=== PATIENT | male | born 1970 | race Caucasian/White ===

== ENCOUNTER 2017-06-21 04:32 | Emergency (ER) | payer OTHER ==
[~2017-06-21] VITALS: Ht 177.8 cm; Wt 106.6 kg
[2017-06-21] MEDS ORDERED: ASPI-1471 PO (04:45)
[2017-06-21] MEDS ORDERED: TICA90TA PO (04:51)
[2017-06-21 04:53] LABS: PLATELET COUNT, AUTOMATED 322 K/uL (150-450)
--- NOTE | 2017-06-21 04:53 | ER Report ---
History and Physical Time Seen By MD: 04:42 Hx. of Stated Complaint: PATIENT HAD AN OR TWO WEEKS AGO, HE WAS AWOKE WITH HAVINESS, HE FEELS REALLY NAUSEATED AND WEAK AND STATES THAT IS HOW HE FELT WITH THE OR TWO WEEKS AGO. HPI/ROS CHIEF COMPLAINT: chest pressure, shortness of breath HISTORY OF PRESENT ILLNESS: This is a 46 year old male. He awoke this morning feeling restless and a feeling of pressure in his chest and jaw. This was very similar to the feeling he had two weeks ago when he had a heart attack while working in [place]. He was admitted to the hospital in [place], [place]. He had a heart cath and noted blockages and clots in his arteries of his heart. Treated with Brilinta and Heparin. No stents placed. He has been on Brilinta and a low dose aspirin since then. He feels the same as his prior heart attack. REVIEW OF SYSTEMS: Constitutional: No fever or chills. Eyes: No vision changes. ENT: No sore throat. No congestion. Cardiovascular: As above. Respiratory: No cough. Gastrointestinal: No abdominal pain. Genitourinary: No dysuria or trouble with urination. Musculoskeletal: No musculoskeletal pain. Skin: No rashes. Neurological: No numbness. Has some generalized weakness. Allergies: Coded Allergies: No Known Drug Allergies (Unverified , 06/21/17) Home Meds Reported Medications Ticagrelor (BRILINTA) 90 Mg Tablet, 90 MG PO BID 06/21/17 Aspirin (ASPIR 81) 81 Mg Tablet.dr, 81 MG PO QDAY, TAB 06/21/17 Past Medical/Surgical History Sleep apnea, headaches. Heart attack 2 weeks ago as noted above. Reviewed Nurses Notes: Yes Hx Substance Use Disorder: No Hx Alcohol Use: No Constitutional Vital Sign - Last 24 Hours 06/21/17 06/21/17 06/21/17 06/21/17 04:32 04:34 04:42 05:00 Temp 98.4 Pulse 86 Resp 15 B/P (MAP) 115/81 115/81 (92) 117/73 (88) Pulse Ox 99 O2 Flow Rate 2.0 06/21/17 06/21/17 06/21/17 06/21/17 05:02 05:07 05:22 05:37 Pulse 78 80 78 77 Resp 16 15 14 19 Pulse Ox 95 95 97 89 06/21/17 06/21/17 06/21/17 06/21/17 05:52 06:08 06:13 06:28 Pulse 75 71 ??? Resp 48 14 27 B/P (MAP) 111/83 (92) Pulse Ox 89 97 97 06/21/17 06/21/17 06:32 06:43 Pulse 74 Resp 29 B/P (MAP) 114/76 (89) Pulse Ox 97 Physical Exam General Appearance: The patient is alert. No acute distress. Eyes: Pupils are equal, round. No pallor, injection or icterus. ENT: Mucous membranes are moist. Normal oral mucosa. Posterior oropharynx is normal. Respiratory: Lungs are clear to auscultation. Cardiovascular: Regular rate and rhythm. No murmurs, gallops or rubs. Normal capillary refill. No edema. Gastrointestinal: Abdomen is soft and non tender. Nondistended. Normal active bowel sounds. Neurological: Alert and oriented x3. Skin: Warm and dry. DIFFERENTIAL DIAGNOSIS: After history and physical exam, differential diagnosis was considered for chest pain including but not limited to myocardial ischemia, pericarditis pulmonary embolus, chest wall pain, pleural inflammation and pulmonary infectious causes. Medical Decision Making Data Points Result Diagram: 06/21/179 06/21/179 Laboratory Hematology Test 06/21/17 04:19 Red Blood Count 5.96 M/uL (4.00-5.60) Mean Corpuscular Volume 88.4 fL (80.0-96.0) Mean Corpuscular Hemoglobin 30.2 pg (26.0-33.0) Mean Corpuscular Hemoglobin Concent 34.2 g/dL (32.0-36.0) Red Cell Distribution Width 14.4 % (11.5-14.5) Mean Platelet Volume 7.6 fL (7.2-11.1) Neutrophils (%) (Auto) 47.6 % (39.4-72.5) Lymphocytes (%) (Auto) 37.9 % (17.6-49.6) Monocytes (%) (Auto) 8.9 % (4.1-12.4) Eosinophils (%) (Auto) 3.5 % (0.4-6.7) Basophils (%) (Auto) 2.1 % (0.3-1.4) Nucleated RBC Relative Count (auto) 0.1 /100WBC Neutrophils # (Auto) 4.0 K/uL (2.0-7.4) Lymphocytes # (Auto) 3.2 K/uL (1.3-3.6) Monocytes # (Auto) 0.7 K/uL (0.3-1.0) Eosinophils # (Auto) 0.3 K/uL (0.0-0.5) Basophils # (Auto) 0.2 K/uL (0.0-0.1) Nucleated RBC Absolute Count (auto) 0.01 K/uL D-Dimer Quantitative (PE/DVT) 0.51 ug/ml (0-0.50) Sodium Level 138 mmol/L (137-145) Potassium Level 3.9 mmol/L (3.5-5.0) Chloride Level 101 mmol/L (98-107) Carbon Dioxide Level 23 mmol/L (22-30) Blood Urea Nitrogen 15 mg/dl (9-21) Creatinine 1.30 mg/dl (0.66-1.25) Glomerular Filtration Rate Calc 59.2 Random Glucose 93 mg/dl (75-110) Calcium Level 8.9 mg/dl (8.4-10.2) Total Bilirubin 0.7 mg/dl (0.2-1.3) Aspartate Amino Transf (AST/SGOT) 27 U/L (0-35) Alanine Aminotransferase (ALT/SGPT) 43 U/L (0-56) Alkaline Phosphatase 105 U/L (0-126) Troponin I 0.248 ng/ml C-Reactive Protein 0.7 mg/dl (<1.0) Total Protein 8.0 gm/dl (6.3-8.2) Albumin 4.4 g/dl (3.5-5.0) Chemistry Test 06/21/17 04:19 White Blood Count 8.4 k/uL (4.5-11.0) Red Blood Count 5.96 M/uL (4.00-5.60) Hemoglobin 18.0 g/dL (14.0-18.0) Hematocrit 52.7 % (42.0-52.0) Mean Corpuscular Volume 88.4 fL (80.0-96.0) Mean Corpuscular Hemoglobin 30.2 pg (26.0-33.0) Mean Corpuscular Hemoglobin Concent 34.2 g/dL (32.0-36.0) Red Cell Distribution Width 14.4 % (11.5-14.5) Platelet Count 322 K/uL (150-450) Mean Platelet Volume 7.6 fL (7.2-11.1) Neutrophils (%) (Auto) 47.6 % (39.4-72.5) Lymphocytes (%) (Auto) 37.9 % (17.6-49.6) Monocytes (%) (Auto) 8.9 % (4.1-12.4) Eosinophils (%) (Auto) 3.5 % (0.4-6.7) Basophils (%) (Auto) 2.1 % (0.3-1.4) Nucleated RBC Relative Count (auto) 0.1 /100WBC Neutrophils # (Auto) 4.0 K/uL (2.0-7.4) Lymphocytes # (Auto) 3.2 K/uL (1.3-3.6) Monocytes # (Auto) 0.7 K/uL (0.3-1.0) Eosinophils # (Auto) 0.3 K/uL (0.0-0.5) Basophils # (Auto) 0.2 K/uL (0.0-0.1) Nucleated RBC Absolute Count (auto) 0.01 K/uL D-Dimer Quantitative (PE/DVT) 0.51 ug/ml (0-0.50) Glomerular Filtration Rate Calc 59.2 Calcium Level 8.9 mg/dl (8.4-10.2) Total Bilirubin 0.7 mg/dl (0.2-1.3) Aspartate Amino Transf (AST/SGOT) 27 U/L (0-35) Alanine Aminotransferase (ALT/SGPT) 43 U/L (0-56) Alkaline Phosphatase 105 U/L (0-126) Troponin I 0.248 ng/ml C-Reactive Protein 0.7 mg/dl (<1.0) Total Protein 8.0 gm/dl (6.3-8.2) Albumin 4.4 g/dl (3.5-5.0) Coagulation Test 06/21/17 04:19 D-Dimer Quantitative (PE/DVT) 0.51 ug/ml EKG/Imaging EKG Interpretation 12 lead EKG: At 0429 hours Rhythm: normal sinus rhythm, rate 83 [place]: normal QRS: normal ST segments: Q waves in the inferior leads with some T-wave inversion in biphasic nature. The rest the T waves and ST segments look normal out elevation or depression. 12 lead EKG: At 0552 hours Rhythm: normal sinus rhythm, rate 70 Unchanged Imaging CHEST PA AND LATERAL 06/21/2017 4:58 AM. INDICATION: Chest pain. COMPARISON: None. FINDINGS: Lungs are well-expanded. Mild bronchial wall thickening. No focal consolidation. No pneumothorax or pleural effusion. Pulmonary vasculature is unremarkable. Heart size is normal. IMPRESSION: Mild airways disease. Report Dictated By: Neymar Wiseman MD at 06/21/2017 5:08 AM ED Course/Re-evaluation Clinical Indication for ER IV: IV Access ED Course The patient had aspirin and nitro from EMS with some improvement of symptoms. He has continued pressure in jaw and chest and some shortness of breath. Labs obtained with IV start. Initial EKG with inferior lead changes as noted, but no ST elevation noted. He has mild nausea which was treated with a dose of Zofran 4mg IV. Labs are returning and show a critical elevation of his troponin of 0.248. Talked with the patient regarding the lab results and we will contact [facility] cardiology for transfer for further evaluation and treatment. I discussed the case with Dr. Freeman, cardiology, and Dr. Davis, hospitalist. They have accepted the patient. We are going to transfer by [facility] ground ambulance. We are in the process of trying to contact the hospital in [place], [place] for more information regarding the heart catheterization and treatments received at that time. We are starting a Heparin bolus and drip at this time as well. Decision to Disposition Date: Jun 21, 2017 Decision to Disposition Time: 05:47 Depart Departure Latest Vital Signs Vital Signs Date Time Temp Pulse Resp B/P (MAP) Pulse Ox O2 Delivery O2 Flow Rate FiO2 06/21/17 06:43 74 29 97 06/21/17 06:32 114/76 (89) 06/21/17 04:42 2.0 06/21/17 04:32 98.4 Impression: Primary Impression: Non-ST elevated myocardial infarction Condition: Condition Unchanged [facility] Jun 21, 2017 04:53
[2017-06-21] MEDS ORDERED: ONDANSETRON 4 MG/2 ML VIAL IVP ONE (05:05)
[2017-06-21] MEDS ORDERED: EMS NS 0.9%(*) 1000 ML BAG 1,000 ML IV ONE (05:05)
--- NOTE | 2017-06-21 05:13 | RADIOLOGY IMAGING REPORT ---
FACILITY: [facility] PATIENT NAME: Bimal Mccray : 1970 MR: [id number] V: [id number] EXAM DATE: ORDERING PHYSICIAN: AMARIS CAMPBELL TECHNOLOGIST: Location: [facility] Patient: Bimal Mccray : 1970 Visit/Account:[id number] Date of Sevice: 06/21/2017 CHEST PA AND LATERAL 06/21/2017 4:58 AM. INDICATION: Chest pain. COMPARISON: None. FINDINGS: Lungs are well-expanded. Mild bronchial wall thickening. No focal consolidation. No pneu mothorax or pleural effusion. Pulmonary vasculature is unremarkable. Heart size is normal. IMPRESSION: Mild airways disease. Report Dictated By: Neymar Wiseman MD at 06/21/2017 5:08 AM Report E-Signed By: Neymar Wiseman MD at 06/21/2017 5:09 AM [id number]
--- NOTE | 2017-06-21 05:16 | EKG ---
[place] [facility] [place]IENT NAME: PIPPA CAMPO : [id number] MR: [id number] V: [id number] EXAM DATE: ORDERING PHYSICIAN: AMARIS CAMPBELL TECHNOLOGIST: SHUBHAM Test Reason : CHEST PAIN Blood Pressure : / mmHG Vent. Rate : 083 BPM Atrial Rate : 083 BPM P-R Int : 180 ms QRS Dur : 098 ms QT Int : 400 ms P-R-T Axes : 043 -27 006 degrees QTc Int : 470 ms Normal sinus rhythm Inferior infarct , age undetermined Abnormal ECG No previous ECGs available Confirmed by LUIS HOLT ([id number]) on 06/21/2017 6:20:18 AM Referred By: Confirmed By:LUIS HOLT
[2017-06-21] MEDS ORDERED: HEPARIN* SOD/D5W 25000 U/500ML 500 ML IV ONE (05:45)
[2017-06-21] MEDS ORDERED: HEPARIN (PORC) 5000 UN/ML VIAL IVP ONE (05:45)
[2017-06-21 06:32] VITALS: BP 114/76
--- NOTE | 2017-06-21 06:44 | EKG ---
FACILITY: [facility] [place] PATIENT NAME: PIPPA CAMPO : [id number] MR: [id number] V: [id number] EXAM DATE: ORDERING PHYSICIAN: AMARIS CAMPBELL TECHNOLOGIST: SHUBHAM Test Reason : CHEST PAIN Blood Pressure : / mmHG Vent. Rate : 070 BPM Atrial Rate : 070 BPM P-R Int : 186 ms QRS Dur : 104 ms QT Int : 416 ms P-R-T Axes : 044 -16 004 degrees QTc Int : 449 ms Normal sinus rhythm Inferior infarct (cited on or before 21-JUN-2017) Abnormal ECG When compared with ECG of 21-JUN-2017 04:29, No significant change was found Confirmed by JAMEEL MONSIVAIS ([id number]) on 06/21/2017 3:33:27 PM Referred By: Confirmed By:JAMEEL MONSIVAIS
== END 2017-06-21 06:51 | disposition short-term general hospital (02) ==
LOC: ER 04:40
DX: I22.2 Subsequent non-ST elevation (NSTEMI) myocardial infarction (principal); I21.9 Acute myocardial infarction, unspecified
CPT/HCPCS: 71046; 84484; 85025; 85379; 86140; 93005; 96361; 96365; 96375; 99285; J1644; 82040; 82247; 82310; 82374; 82435; 82565; 82947; 84075; 84132; 84155; 84295; 84450; 84460; 84520

== ENCOUNTER → 2017-06-21 | Outpatient (CLI) | payer OTHER ==
[~2017-06-21] MED LIST: ASPI-1471 PO; TEST1.25 TOP; TICA90TA PO; WARF5TAB23 PO
== END ==
LOC: AMB 06:39
PROVIDERS: ATTEND Nurse Practitioner
DX: I21.4 Non-ST elevation (NSTEMI) myocardial infarction (principal); R79.89 Other specified abnormal findings of blood chemistry
CPT/HCPCS: A0425; A0426

== ENCOUNTER → 2017-06-21 | Outpatient (CLI) | payer OTHER | LOC: AMB 04:08 | PROVIDERS: ATTEND Nurse Practitioner | DX: R07.89 Other chest pain (principal); F41.9 Anxiety disorder, unspecified | CPT/HCPCS: A0425; A0427 ==

== ENCOUNTER 2017-07-01 16:10 | Emergency (ER) | payer OTHER ==
[~2017-07-01] VITALS: Ht 175.3 cm; Wt 108.9 kg
[~2017-07-01 16:10] MED LIST changes: -WARF5TAB23 PO
--- NOTE | 2017-07-01 16:20 | ER Report ---
History and Physical Time Seen By MD: 16:19 Hx. of Stated Complaint: pt presents with chest pain , sob, nausea and bilat jaw pain, intermittantly thru day. Pt had mi 2 weeks ago, had 2 card caths, and was told blood clots are causing his trouble (SEAN PERALTA MD) HPI/ROS CHIEF COMPLAINT: Chest pain HISTORY OF PRESENT ILLNESS: 46-year-old male referred from doctor's office for chest pain that started around 2 PM feels similar to prior SC per Dr. Fontenot he had troponin of 0.299 today at 1500. 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 He reports 2 prior MIs that required catheter and angiomoplasty was performed without stent placement, last intervention was about 2 weeks ago. He on Ticagrelor (Brilinta) 90 mg po BID and reports compliance. Also on baby ASA 81s. He took two of those [employer]. He is on topical testosterone. Per report his troponin was higher today than it was upon discharge recently from [facility] where the troponin tested at 0.21 and was trending downward at the time of discharge. No other concerns or complaints today. He is refusing morphine at this time. He is refusing Nitro at this time as it has not worked well in the past. REVIEW OF SYSTEMS: Constitutional: No fever, no chills. Eyes: No discharge. ENT: No sore throat. Cardiovascular: No edema, no palpitations. Respiratory: No cough, no shortness of breath. Gastrointestinal: No abdominal pain, no vomiting. Genitourinary: No hematuria. Musculoskeletal: No back pain. No leg swelling Skin: No rashes. Neurological: No headache. (SEAN PERALTA MD) Allergies: Coded Allergies: No Known Drug Allergies (Unverified , 07/01/17) Home Meds Reported Medications TESTOSTERONE 1.62% Topical Gel (ANDROGEL 1.62% Topical Gel) 1.25 Gm Gel.packet, 2 JEANNE TOP DAILY 07/01/17 Ticagrelor (BRILINTA) 90 Mg Tablet, 90 MG PO BID 06/21/17 Aspirin (ASPIR 81) 81 Mg Tablet.dr, 81 MG PO QDAY, TAB 06/21/17 Smoking Status: Never Smoker Hx Substance Use Disorder: No Hx Alcohol Use: No (SEAN PERALTA MD) Constitutional Vital Sign - Last 24 Hours 07/01/17 07/01/17 07/01/17 07/01/17 16:14 16:15 16:30 16:40 Temp 100.3 Pulse 89 81 Resp 22 B/P (MAP) 142/94 (110) 142/94 130/90 (103) Pulse Ox 97 96 O2 Delivery Room Air 07/01/17 07/01/17 07/01/17 07/01/17 16:45 17:00 18:45 19:00 Pulse 92 82 B/P (MAP) 122/79 (93) 132/90 (104) 137/77 (97) 131/85 (100) Pulse Ox 93 93 07/01/17 07/01/17 07/01/17 07/01/17 19:15 19:28 19:30 19:45 Pulse 84 86 89 94 B/P (MAP) 138/85 (102) 123/82 (96) 127/78 (94) 118/66 (83) Pulse Ox 95 94 92 94 (CHALINO ABRAMS MD) Physical Exam General Appearance: The patient is alert, has no immediate need for airway protection and no signs of toxicity. He is in no acute distress Eyes: Pupils equal and round no pallor or injection. ENT, Mouth: Mucous membranes are moist. Respiratory: There are no retractions, lungs are clear to auscultation. Cardiovascular: Regular rate and rhythm. No murmurs gallops or rubs There is no JVD there is no peripheral edema Gastrointestinal: Abdomen is soft and non tender, no masses, bowel sounds normal. Neurological: Normal neurological exam Skin: Warm and dry, no rashes. Musculoskeletal: Neck is supple non tender. Extremities are nontender, nonswollen and have full range of motion. No edema appreciated negative Homans sign bilaterally DIFFERENTIAL DIAGNOSIS: After history and physical exam differential diagnosis was considered for acute coronary syndrome pulmonary ectasia, coronary artery aneurysm, aortic aneurysm, aortic dissection pneumonia pericardial tampode pericarditis (SEAN PERALTA MD) Medical Decision Making Data Points Result Diagram: 07/01/17 1616 07/01/17 1616 Laboratory Hematology Test 07/01/17 16:16 Red Blood Count 5.94 M/uL (4.00-5.60) Mean Corpuscular Volume 89.5 fL (80.0-96.0) Mean Corpuscular Hemoglobin 30.3 pg (26.0-33.0) Mean Corpuscular Hemoglobin Concent 33.9 g/dL (32.0-36.0) Red Cell Distribution Width 15.0 % (11.5-14.5) Mean Platelet Volume 7.8 fL (7.2-11.1) Neutrophils (%) (Auto) 60.4 % (39.4-72.5) Lymphocytes (%) (Auto) 29.0 % (17.6-49.6) Monocytes (%) (Auto) 7.0 % (4.1-12.4) Eosinophils (%) (Auto) 2.8 % (0.4-6.7) Basophils (%) (Auto) 0.8 % (0.3-1.4) Nucleated RBC Relative Count (auto) 0.1 /100WBC Neutrophils # (Auto) 6.4 K/uL (2.0-7.4) Lymphocytes # (Auto) 3.1 K/uL (1.3-3.6) Monocytes # (Auto) 0.7 K/uL (0.3-1.0) Eosinophils # (Auto) 0.3 K/uL (0.0-0.5) Basophils # (Auto) 0.1 K/uL (0.0-0.1) Nucleated RBC Absolute Count (auto) 0.01 K/uL Prothrombin Time 12.8 seconds (12.0-14.4) Prothromb Time International Ratio 0.97 Activated Partial Thromboplast Time 27 seconds (23-35) Sodium Level 138 mmol/L (137-145) Potassium Level 3.8 mmol/L (3.5-5.0) Chloride Level 100 mmol/L (98-107) Carbon Dioxide Level 24 mmol/L (22-30) Blood Urea Nitrogen 16 mg/dl (9-21) Creatinine 1.20 mg/dl (0.66-1.25) Glomerular Filtration Rate Calc > 60.0 Random Glucose 83 mg/dl (75-110) Calcium Level 8.9 mg/dl (8.4-10.2) Phosphorus Level 3.2 mg/dl (2.5-4.5) Magnesium Level 1.8 mg/dl (1.7-2.2) Total Bilirubin 0.4 mg/dl (0.2-1.3) Aspartate Amino Transf (AST/SGOT) 17 U/L (0-35) Alanine Aminotransferase (ALT/SGPT) 35 U/L (0-56) Alkaline Phosphatase 91 U/L (0-126) Troponin I 0.037 ng/ml B-Type Natriuretic Peptide 34 pg/ml (0-100) Total Protein 7.9 gm/dl (6.3-8.2) Albumin 4.6 g/dl (3.5-5.0) Chemistry Test 07/01/17 16:16 White Blood Count 10.6 k/uL (4.5-11.0) Red Blood Count 5.94 M/uL (4.00-5.60) Hemoglobin 18.0 g/dL (14.0-18.0) Hematocrit 53.1 % (42.0-52.0) Mean Corpuscular Volume 89.5 fL (80.0-96.0) Mean Corpuscular Hemoglobin 30.3 pg (26.0-33.0) Mean Corpuscular Hemoglobin Concent 33.9 g/dL (32.0-36.0) Red Cell Distribution Width 15.0 % (11.5-14.5) Platelet Count 250 K/uL (150-450) Mean Platelet Volume 7.8 fL (7.2-11.1) Neutrophils (%) (Auto) 60.4 % (39.4-72.5) Lymphocytes (%) (Auto) 29.0 % (17.6-49.6) Monocytes (%) (Auto) 7.0 % (4.1-12.4) Eosinophils (%) (Auto) 2.8 % (0.4-6.7) Basophils (%) (Auto) 0.8 % (0.3-1.4) Nucleated RBC Relative Count (auto) 0.1 /100WBC Neutrophils # (Auto) 6.4 K/uL (2.0-7.4) Lymphocytes # (Auto) 3.1 K/uL (1.3-3.6) Monocytes # (Auto) 0.7 K/uL (0.3-1.0) Eosinophils # (Auto) 0.3 K/uL (0.0-0.5) Basophils # (Auto) 0.1 K/uL (0.0-0.1) Nucleated RBC Absolute Count (auto) 0.01 K/uL Prothrombin Time 12.8 seconds (12.0-14.4) Prothromb Time International Ratio 0.97 Activated Partial Thromboplast Time 27 seconds (23-35) Glomerular Filtration Rate Calc > 60.0 Calcium Level 8.9 mg/dl (8.4-10.2) Phosphorus Level 3.2 mg/dl (2.5-4.5) Magnesium Level 1.8 mg/dl (1.7-2.2) Total Bilirubin 0.4 mg/dl (0.2-1.3) Aspartate Amino Transf (AST/SGOT) 17 U/L (0-35) Alanine Aminotransferase (ALT/SGPT) 35 U/L (0-56) Alkaline Phosphatase 91 U/L (0-126) Troponin I 0.037 ng/ml B-Type Natriuretic Peptide 34 pg/ml (0-100) Total Protein 7.9 gm/dl (6.3-8.2) Albumin 4.6 g/dl (3.5-5.0) Coagulation Test 07/01/17 16:16 Prothrombin Time 12.8 seconds Prothromb Time International Ratio 0.97 Activated Partial Thromboplast Time 27 seconds (CHALINO ABRAMS MD) EKG/Imaging EKG Interpretation EKG 1613 my read: Normal sinus rhythm rate of 93 inferior infarct age undetermined normal DC QRS and QTc intervals no ST elevations. (SEAN PERALTA MD) ED Course/Re-evaluation ED Course Patient refuses nitroglycerin and refused pain medicine. Morphine was offered. (SEAN PERALTA MD) ED Course Assumed care of 46-year-old male with a significant history coronary artery disease and coronary aneurysms that was found to have elevated troponin in clinic today. Patient has history chronic chest pain in the setting of his coronary artery disease and can be very challenging to evaluate when symptoms are acute but according to patient when he was in clinic his chest pain was associated with jaw pain and nausea and increased symptomology that's was very consistent with this past MIs. On my initial evaluation the patient is symptom- free other than his chronic chest pain and a repeat EKG has been performed. The repeat EKG is very consistent with his old EKG dated 06/21/2017. In reviewing his 1st EKG here in the emergency department he's got subtle ST elevation in lead 3 with reciprocal changes in V2 and V4 and V5 that are subtle but concerning. After further interview patient he tells me at that time he was having significant jaw pain and nausea in association with it. Patient felt like he was his baseline symptoms with the 2nd EKG and the subtle changes seem to use salt and his EKG is pretty consistent with his old one. Patient did have a troponin obtained when he was in clinic and it came back at 0.229. Repeat troponin here is 0.037. These labs were obtained and hour and a half apart and were read by the same lab but do not seem to make logical sense I'm concerned that one may be a lab error. In any case given patient's symptoms I think are consistent with unstable angina that are waxing and waning with dynamic EKG changes although subtle and an elevated troponin I have elected to call cardiology and transport him to [place]. Did talk with utilization specialist who advised going ahead and starting him on a heparin drip and transferring him. I went into discuss further plan with patient his symptoms are returning and he was noting that the nausea and the jaw pain seemed to kind of fluctuate. He been offered nitroglycerin on his initial arrival but had refused it because in the past it has not helped. After further discussion with him he was agreeable to start a nitro drip. Patient has been accepted in [place] for further evaluation. Flight team is available and will transport patient as he needs a nurse to accompany him with the heparin and nitro drip. Patient has remained hemodynamically stable while in the emergency department. I discussed results and plan in detail with patient and his next breast understanding and agreement. Patient has also obtained a CT scan of his chest to rule out PE which was very reassuring without evidence of pulmonary embolism. Decision to Disposition Date: Jul 01, 2017 Decision to Disposition Time: 08:00 Critical Care Time Critical care note Total time: 60 minutes minutes. Critical care time mutually exclusive of separate billable procedures. Critical care conditions addressed for pending deterioration include cardiovascular, metabolic Associated risk factors include hypotension, dysrhythmia, metabolic changes, hypertension Management: Bedside assessment Interpretation: Chest x-ray, EKG, blood pressure Interventions: Hemodynamic management, heparin, nitroglycerin Case review: [medical specialists], nursing, [family] Alternate history: [Family], [EMS]. Performed by myself (CHALINO ABRAMS MD) Depart Departure Latest Vital Signs Vital Signs Date Time Temp Pulse Resp B/P (MAP) Pulse Ox O2 Delivery O2 Flow Rate FiO2 07/01/17 19:45 94 118/66 (83) 94 07/01/17 16:15 100.3 22 Room Air (CHALINO ABRAMS MD) Impression: Primary Impression: Acute coronary syndrome Additional Impression: Elevated troponin Condition: Critical Disposition: XFER TO ACUTE CARE HOSPITAL Referrals: JACKIE JAY MD (PCP) Problem Qualifiers SEAN PERALTA MD Jul 01, 2017 16:20 CHALINO ABRAMS MD Jul 01, 2017 19:51
[2017-07-01] MEDS ORDERED: ASPIRIN 81 MG CHEW PO ONE (16:30)
--- NOTE | 2017-07-01 16:49 | EKG ---
FACILITY: [facility] PATIENT NAME: PIPPA CAMPO : [id number] MR: [id number] V: [id number] EXAM DATE: ORDERING PHYSICIAN: SEAN PERALTA TECHNOLOGIST: JUNG Sampson Reason : CP Blood Pressure : / mmHG Vent. Rate : 093 BPM Atrial Rate : 093 BPM P-R Int : 166 ms QRS Dur : 108 ms QT Int : 376 ms P-R-T Axes : 056 -29 012 degrees QTc Int : 467 ms Normal sinus rhythm Inferior infarct (cited on or before 21-JUN-2017) Cannot rule out Anterior infarct , age undetermined Abnormal ECG When compared with ECG of 01-JUL-2017 14:02, T wave inversion inferiorly has improved Confirmed by DERIK SALCEDO ([id number]) on 07/01/2017 7:08:47 PM Referred By: KATHRYN Confirmed By:DERIK SALCEDO
[2017-07-01] MEDS ORDERED: NS(*) 0.9% 1000 ML BAG 1,000 ML IV ONE (16:50)
[2017-07-01 16:53] LABS: PLATELET COUNT, AUTOMATED 250 K/uL (150-450)
--- NOTE | 2017-07-01 17:15 | RADIOLOGY IMAGING REPORT ---
FACILITY: [facility] [place] PATIENT NAME: Bimal Mccray : 1970 MR: [id number] V: [id number] EXAM DATE: ORDERING PHYSICIAN: SEAN PERALTA TECHNOLOGIST: Location: [facility] Patient: Bimal Mccray : 1970 Visit/Account:[id number] Date of Sevice: 07/01/2017 Single view of the chest Indication: Wheezing and dyspnea. Evaluate for edema.. Comparison: None available Findings: Cardiac silhouette is upper limits of normal, but accentuated by the frontal projection. Given the se mierect AP view, there is no significant vascular congestion. No interstitial or alveolar edema. No e ffusion, consolidation or pneumothorax. No evidence of acute bony finding. IMPRESSION: 1. No acute cardiopulmonary process. Report Dictated By: Sam Mina MD at 07/01/2017 5:10 PM Report E-Signed By: Sam Mina MD at 07/01/2017 5:11 PM [id number]
[2017-07-01] MEDS ORDERED: IOPAMIDOL 76% 75 ML INFUS BTL 75 ML ONE (17:18)
--- NOTE | 2017-07-01 17:58 | RADIOLOGY IMAGING REPORT ---
FACILITY: [facility] - [place] PATIENT NAME: Bimal Mccray : 1970 MR: [id number] V: [id number] EXAM DATE: ORDERING PHYSICIAN: SEAN PERALTA TECHNOLOGIST: Location: [facility] [place] Patient: Bimal Mccray : 1970 Visit/Account:[id number] Date of Sevice: 07/01/2017 EXAMINATION: CTA of the chest with IV contrast HISTORY: Left anterior superior chest pain for one day. COMPARISON: None. TECHNIQUE: Pulmonary embolus protocol - Thin-slice axial imaging of the chest was performed during maximal pulmonary arterial opacification with intravenous nonionic iodinated contrast. 3D coronal sla b MIPs and 2D reconstructions in the coronal and sagittal planes were performed to aid in pulmonary e mbolus detection. Trailer Steerer images have been stored on PACS. CONTRAST: 75 mL of IV Isovue-370 One of the following dose optimization techniques was utilized in the performance of this exam: Autom ated exposure control; adjustment of the mA and/or kV according to the patient's size; or use of an i terative reconstruction technique. Specific details can be referenced in the facility's radiology C T exam operational policy. FINDINGS: CTA CHEST: Please note that this exam is optimized for assessment of the pulmonary arteries and is not intended as a diagnostic study of the thoracic aorta, coronary arteries or venous structures. Angiographic Findings: Pulmonary arteries: There are no filling defects in the main, right, left, lobar, segmental or visual ized sub-segmental branches of the pulmonary arterial system. Other vasculature: Coronary artery calcifications involving the LAD. Additional non-angiographic findings: Lungs / Pleura: A 4.5 mm noncalcified nodule in the left lower lobe and a 4 mm noncalcified nodule in the left lower lobe. No focal consolidation or pleural effusion. Mediastinum / Lawanda: Negative. Heart / Pericardium: Negative. Musculoskeletal / Body wall: Bridging anterior osteophytes throughout the thoracic spine. Lymph node assessment: Negative. Lower neck: Negative. Upper abdomen: A few subcentimeter hypoattenuating lesions scattered in the liver IMPRESSION: No evidence pulmonary embolism. Coronary artery calcifications. 4 mm and 4.5 mm noncalcified pulmonary nodules in the left lower lobe. For nodules this size in a l ow risk patient (minimal or absent smoking history, no history of malignancy), no routine followup is recommended. In a high risk patient (smoking or malignancy history), optional 12 month followup can be obtained. A few subcentimeter hypoattenuating lesions scattered in the liver which are probably cysts, but are not fully characterized on this exam. Report Dictated By: David Coronado MD at 07/01/2017 5:40 PM Report E-Signed By: David Coronado MD at 07/01/2017 5:54 PM WSN:[id number]
--- NOTE | 2017-07-01 18:50 | EKG ---
FACILITY: [facility] - [place] PATIENT NAME: PIPPA CAMPO : [id number] MR: [id number] V: [id number] EXAM DATE: ORDERING PHYSICIAN: SEAN PERALTA TECHNOLOGIST: JUNG Sampson Reason : REPEAT Blood Pressure : / mmHG Vent. Rate : 090 BPM Atrial Rate : 090 BPM P-R Int : 170 ms QRS Dur : 106 ms QT Int : 382 ms P-R-T Axes : 046 -32 002 degrees QTc Int : 467 ms Normal sinus rhythm Left axis deviation Inferior infarct (cited on or before 21-JUN-2017) Cannot rule out Anterior infarct (cited on or before 01-JUL-2017) Abnormal ECG When compared with ECG of 01-JUL-2017 16:13, No significant change was found Confirmed by DERIK SALCEDO ([id number]) on 07/01/2017 7:11:25 PM Referred By: KATHRYN Confirmed By:DERIK SALCEDO
[2017-07-01] MEDS ORDERED: HEPARIN* SOD/D5W 25000 U/500ML 500 ML IV ONE (18:58)
[2017-07-01] MEDS ORDERED: HEPARIN (PORC) 5000 UN/ML VIAL IVP ONE (19:00)
[2017-07-01] MEDS ORDERED: NITROGLYCERIN 5 MG/ML VIAL 50 MG in D5W(*) 250 ML BAG 250 ML IVPB ONE (19:25)
[2017-07-01 19:45] VITALS: BP 118/66
[2017-07-01 20:20] LABS: INR 0.97
== END 2017-07-01 19:58 | disposition short-term general hospital (02) ==
LOC: ER 16:36
DX: I24.9 Acute ischemic heart disease, unspecified (principal); R79.89 Other specified abnormal findings of blood chemistry; R94.31 Abnormal electrocardiogram [ECG] [EKG]
CPT/HCPCS: 71045; 71275; 83735; 83880; 84100; 84484; 85025; 85610; 85730; 93005; 96361; 96365; 96375; 99291; J1644; J3490; J7030; J7060; Q9967; 82040; 82247; 82310; 82374; 82435; 82565; 82947; 84075; 84132; 84155; 84295; 84450; 84460; 84520; 99285

== ENCOUNTER → 2017-07-01 | Outpatient (CLI) | payer OTHER ==
[~2017-07-01] MED LIST changes: -WARF5TAB23 PO
--- NOTE | 2017-07-01 15:40 | EKG ---
FACILITY: [facility] PATIENT NAME: PIPPA CAMPO : [id number] MR: [id number] V: [id number] EXAM DATE: ORDERING PHYSICIAN: JACKIE JAY TECHNOLOGIST: DARSHANA JEWELL Test Reason : CHEST PAIN Blood Pressure : / mmHG Vent. Rate : 083 BPM Atrial Rate : 083 BPM P-R Int : 168 ms QRS Dur : 104 ms QT Int : 368 ms P-R-T Axes : 056 -30 -31 degrees QTc Int : 432 ms Normal sinus rhythm Left axis deviation Inferior infarct , age undetermined T inversion consistent with inferior ischemia vs normal variant T inversion now in II and aVF compared to previous Confirmed by DERIK SALCEDO ([id number]) on 07/01/2017 4:11:11 PM Referred By: Confirmed By:DERIK SALCEDO
== END ==
LOC: LAB 14:39
PROVIDERS: ATTEND Emergency Medicine
DX: E83.51 Hypocalcemia (principal); I25.10 Atherosclerotic heart disease of native coronary artery without angina pectoris; R94.31 Abnormal electrocardiogram [ECG] [EKG]; R07.9 Chest pain, unspecified
CPT/HCPCS: 36415; 82306; 84443; 84484

== ENCOUNTER → 2017-07-01 | Outpatient (REF) ==
[~2017-07-01] MED LIST changes: +WARF5TAB23 PO
== END ==
LOC: AMB 19:23
PROVIDERS: ATTEND Nurse Practitioner
DX: Z02.9 Encounter for administrative examinations, unspecified (principal)

== ENCOUNTER → 2017-07-07 | Outpatient (CLI) | payer OTHER ==
[~2017-07-07] MED LIST changes: +WARF5TAB23 PO
[2017-07-07 09:31] LABS: INR 1.1
== END ==
LOC: LAB 08:07
PROVIDERS: ATTEND Student in an Organized Health Care Education/Training Program
DX: I25.10 Atherosclerotic heart disease of native coronary artery without angina pectoris (principal); I25.2 Old myocardial infarction; I25.41 Coronary artery aneurysm; Z86.718 Personal history of other venous thrombosis and embolism
CPT/HCPCS: 36415; 85610

== ENCOUNTER → 2017-07-09 | Outpatient (CLI) | payer OTHER ==
[2017-07-09 14:27] LABS: INR 1.48
--- NOTE | 2017-07-09 14:54 | EKG ---
FACILITY: [facility] PATIENT NAME: PIPPA CAMPO : [id number] MR: [id number] V: [id number] EXAM DATE: ORDERING PHYSICIAN: JACKIE JAY TECHNOLOGIST: DARSHANA JEWELL Test Reason : JAW PAIN Blood Pressure : / mmHG Vent. Rate : 084 BPM Atrial Rate : 084 BPM P-R Int : 168 ms QRS Dur : 104 ms QT Int : 376 ms P-R-T Axes : 056 -33 -24 degrees QTc Int : 444 ms Normal sinus rhythm Left axis deviation Inferior infarct , age undetermined Abnormal ECG No previous ECGs available Referred By: Confirmed By:
== END ==
LOC: LAB 13:33
PROVIDERS: ATTEND Emergency Medicine
DX: R68.84 Jaw pain (principal); Z79.01 Long term (current) use of anticoagulants; D68.9 Coagulation defect, unspecified
CPT/HCPCS: 36415; 81270; 84484; 85300; 85302; 85305; 85610

== ENCOUNTER → 2017-07-21 | Outpatient (CLI) | payer OTHER ==
[~2017-07-21] MED LIST changes: +ISOS30TA54 PO; +METO25TA91 PO
== END ==
LOC: LAB 09:01
PROVIDERS: ATTEND Emergency Medicine
DX: E83.19 Other disorders of iron metabolism (principal)
CPT/HCPCS: 36415; 83540; 83550

== ENCOUNTER → 2017-07-28 | Outpatient (CLI) | payer OTHER ==
[~2017-07-28] MED LIST changes: +NITR0.4T3 SL
--- NOTE | 2017-07-30 05:56 | RT HOLTER TEST ---
FACILITY: [facility] - [place] PATIENT NAME: PIPPA CAMPO : [id number] MR: [id number] V: [id number] EXAM DATE: ORDERING PHYSICIAN: JACKIE JAY TECHNOLOGIST: BARBI Hook-up date: 2017-07-28 14:11:00 Duration: 23:24:00 Test Indications: PALPITATIONS Medications: TOPROL NITRATE? COUMADIN [id number] QRS complexes 7 Ventricular ectopics which represent <1 % of total QRS comp. 15 Supraventricular ectopics which represent <1 % of total QRS comp. * Paced QRS complexes which represent % of total QRS comp. VENTRICULAR ECTOPY 7 Isolated 0 Bigeminal Cycles 0 Couplets 0 Runs 0 Beats in Runs * Beats LONGEST at * BPM at :: -- * Beats FASTEST at * BPM at :: -- SUPRAVENTRICULAR ECTOPY 15 Isolated 0 Couplets 0 Runs 0 Beats in Runs * Beats LONGEST at * BPM at :: -- * Beats FASTEST at * BPM at :: -- HEART RATES 60 MIN at 23:55:50 2017-07-28 82 AVG 127 MAX at 06:49:19 2017-07-29 LONGEST RR 1.008 secs at 04:28:44 2017-07-29 S-T LEVELS Channel 1 -12.800 mm MIN at 14:11:00 2017-07-28 -12.800 mm MAX at 14:11:00 2017-07-28 Channel 2 -12.800 mm MIN at 14:11:00 2017-07-28 -12.800 mm MAX at 14:11:00 2017-07-28 Channel 3 -12.800 mm MIN at 14:11:00 2017-07-28 -12.800 mm MAX at 14:11:00 2017-07-28 Rare ventricular ectopy and rare supraventricular ectopy. No couplets, triplets, or runs were recorde d. Intermittent T wave changes and nonspecific interventricular conduction delay were noted during recor ding. No pauses were recorded. Confirmed by PHILIP HILL ([id number]) on 07/30/2017 5:55:16 AM Referred By: Overread By: PHILIP HILL
== END ==
LOC: RESP 13:51
PROVIDERS: ATTEND Emergency Medicine
DX: R00.2 Palpitations (principal)
CPT/HCPCS: 93225; 93226

== ENCOUNTER → 2017-07-28 | Outpatient (CLI) | payer OTHER ==
--- NOTE | 2017-07-28 09:21 | EKG ---
FACILITY: [facility] PATIENT NAME: PIPPA CAMPO : [id number] MR: [id number] V: [id number] EXAM DATE: ORDERING PHYSICIAN: JACKIE JAY TECHNOLOGIST: PIERRE Test Reason : CHEST PAIN Blood Pressure : / mmHG Vent. Rate : 091 BPM Atrial Rate : 091 BPM P-R Int : 158 ms QRS Dur : 106 ms QT Int : 362 ms P-R-T Axes : 060 -41 -36 degrees QTc Int : 445 ms Normal sinus rhythm Left axis deviation Inferior infarct , age undetermined Abnormal ECG No previous ECGs available Referred By: Confirmed By:
== END ==
LOC: LAB 08:57
PROVIDERS: ATTEND Emergency Medicine
DX: R94.31 Abnormal electrocardiogram [ECG] [EKG] (principal); R07.9 Chest pain, unspecified
CPT/HCPCS: 36415; 84484

== ENCOUNTER 2017-07-30 09:00 | Outpatient (RCR) | payer OTHER ==
[2017-07-28 12:25] VITALS: BP 102/66
[2017-07-28 12:26] VITALS: BP 120/80
--- NOTE | 2017-07-28 13:02 | CARDIAC REHAB PLAN OF CARE ---
Physician: Herve CAMPBELL Patient is being seen: Andrea Warren Medical Diagnosis: NSTEMI Date of Initial Evaluation: 07/28/2017 SHORT TERM GOALS Short Term Goals Due Date: 08/27/17 Short Term Goals: 46 year old male, phase II patient comes to cardiac rehab after NSTEMI, 2017, and hx of Aortic Aneurysm. Patient is healthy otherwise, with a history of strong man type events and workouts. Patient tolerated the 6 minutes walk test well achieving 3.1 MPH with SPO2 levels at 90-93% on room air and the child monitor showed a NSR-ST without ectopy and rates of 100-111. Patient did report mild angina of 1-2 on the 0/10 scale at the end of the 6 minute walk, which subsided with rest. Short term goals are to establish an exercise prescription of cardio type exercise of at least 150 minutes at a moderate level each week along with weight resistance at least twice a week. Patient will also adjust diet to follow a heart healthy diet with proper portions. Short Term Goals Met: Short Term Goals Not Met Due To: RESIDENTIAL GOALS Prison Goal Due Date: 09/27/17 Appliance Tester Goals: The chcf goals for the patient are to remain consistence with cardiac rehab protocol achieving THR zone for at least the minimum 150 minutes each week. Patient will also remain consistent with heart health meals. Appliance Tester Goals Met: Appliance Tester Goals Not Met Due To: PATIENT'S GOALS Patient Goals Due Date: 08/27/17 Patient Goals: Patient goals are to improve cardiac and overall health, and to remain active and extend life. Patient Goals Met: Patient Goals Not Met Due To: Cardiac Rehabilitation Plan of Care Comment: Cardiac rehab staff will monitor, record, and evaluate vitals, ECG, and exercise results to provide the best plan of care for the patient during the 36 visit phase II program. CR staff will motivate and educate the patient during visits for rehab. JLUIS
[2017-08-01] MEDS ORDERED: ISOS60TA42 PO (15:56)
[2017-08-08] MEDS ORDERED: METO25TA91 PO (08:48)
[2017-08-08 16:28] VITALS: BP 134/86
[2017-08-08 16:29] VITALS: BP 122/76
== END 2017-07-30 18:00 | disposition home or self-care (01) ==
LOC: CARD 09:00
PROVIDERS: ATTEND Internal Medicine Cardiovascular Disease
DX: I25.2 Old myocardial infarction (principal); I71.9 Aortic aneurysm of unspecified site, without rupture
CPT/HCPCS: 93798

== ENCOUNTER → 2017-09-24 | Outpatient (CLI) | payer OTHER ==
[~2017-09-24] MED LIST changes: +AMLO-96 PO; +ISOS60TA42 PO; +PANT40TA65 PO
== END ==
LOC: LAB 13:51
PROVIDERS: ATTEND Emergency Medicine
DX: R07.9 Chest pain, unspecified (principal)
CPT/HCPCS: 87338

== ENCOUNTER → 2017-10-28 | Outpatient (CLI) | payer OTHER | LOC: LAB 10:06 | PROVIDERS: ATTEND Emergency Medicine | DX: I25.41 Coronary artery aneurysm (principal) | CPT/HCPCS: 36415; 85651; 86038; 86140; 86225 ==

== ENCOUNTER 2017-11-28 14:45 | Emergency (ER) | payer OTHER ==
[2017-11-28] MEDS ORDERED: NS(*) 0.9% 1000 ML BAG 1,000 ML IV ONE (15:02)
--- NOTE | 2017-11-28 15:02 | EKG ---
FACILITY: [facility] - [place] PATIENT NAME: PIPPA CAMPO : [id number] MR: [id number] V: [id number] EXAM DATE: ORDERING PHYSICIAN: EDUARDO BOSWELL TECHNOLOGIST: NADIR Sampson Reason : CHEST PAIN Blood Pressure : / mmHG Vent. Rate : 088 BPM Atrial Rate : 088 BPM P-R Int : 158 ms QRS Dur : 106 ms QT Int : 374 ms P-R-T Axes : 041 -33 -07 degrees QTc Int : 452 ms Normal sinus rhythm Left axis deviation Incomplete right bundle branch block Inferior infarct (cited on or before 21-JUN-2017) Abnormal ECG When compared with ECG of 28-JUL-2017 07:57, No significant change was found Confirmed by JAMEEL MONSIVAIS ([id number]) on 11/28/2017 8:13:19 PM Referred By: ANDREIA Confirmed By:JAMEEL MONSIVAIS
[2017-11-28] MEDS ORDERED: ONDANSETRON 4 MG/2 ML VIAL IVP ONE (15:05)
[2017-11-28] MEDS ORDERED: ASPIRIN 81 MG CHEW PO ONE (15:05)
[2017-11-28] MEDS ORDERED: NITROGLYCERIN OINT 1 GM PKT TP ONE (15:10)
[2017-11-28] MEDS ORDERED: MORPHINE 4 MG/ML SDV IVP PRN (15:10)
[2017-11-28 15:12] LABS: PLATELET COUNT, AUTOMATED 280 K/uL (150-450)
[2017-11-28] MEDS ORDERED: MORPHINE 4 MG/ML SDV IVP ONE (15:20)
--- NOTE | 2017-11-28 16:18 | ER Report ---
History and Physical Time Seen By MD: 14:55 Hx. of Stated Complaint: FEELS LIKE HE'S HAVING A HEART ATTACK, SOB DIZZY, CHEST PAIN HPI/ROS CHIEF COMPLAINT: Chest pain HISTORY OF PRESENT ILLNESS: This is a 47-year-old female who presents to the emergency department for chest pain. Patient states that over the last 5 days he 's had intermittent chest pain, he does have a known history of angina, has also had 3 an STEMI's in the past. Patient states that he did contact his primary care provider today I did get a call from them today as well they sent him to the ER for further evaluation. Patient states he was pain-free earlier today however on the drive over he began to develop some left-sided anterior chest pain which was very similar to the chest pain he's had in the past when he had his in STEMI's. Intermittent shortness of breath. Patient has had some nausea and intermittent diaphoresis. No fevers. No rashes. No dyspnea. No headaches. REVIEW OF SYSTEMS: Constitutional: No fever, no chills. Eyes: No discharge. ENT: No sore throat. Cardiovascular: As above. Respiratory: As above. Gastrointestinal: As above. Genitourinary: No hematuria. Musculoskeletal: No back pain. Skin: No rashes. Neurological: No headache. Allergies: Coded Allergies: No Known Drug Allergies (Unverified , 07/01/17) Home Meds Active Scripts Nitroglycerin (NITROGLYCERIN) 0.4 Mg Tab.subl, 0.4 MG SL Q5MIN, #60 TAB 11 Refills 1 tab Q5 mins for three doses. If chest pain does not go away, go to Emergency Room. Prov:JACKIE JAY MD 10/27/17 Pantoprazole Sodium (PANTOPRAZOLE SODIUM) 40 Mg Tablet.dr, 40 MG PO QDAY, #30 TAB.SR Take half an hour before breakfast Prov:JACKIE JAY MD 09/24/17 Ticagrelor (BRILINTA) 90 Mg Tablet, 90 MG PO BID, #60 TAB 11 Refills Prov:JACKIE JAY MD 09/18/17 Isosorbide Mononitrate (ISOSORBIDE MONONITRATE ER) 60 Mg Tab.er.24h, 1 TAB PO DAILY, #30 TAB 10 Refills Prov:JACKIE JAY MD 09/18/17 Metoprolol Succinate (TOPROL XL) 25 Mg Tab.er.24h, 1 TAB PO QDAY, #90 TAB 3 Refills Prov:JACKIE JAY MD 08/08/17 Warfarin Sodium (WARFARIN SODIUM) 5 Mg Tablet, 5 MG PO QDAY, #102 TAB 1 Refill Prov:JACKIE JAY MD 07/28/17 Reported Medications Amlodipine Besylate (AMLODIPINE BESYLATE) 5 Mg Tablet, 1 TAB PO QDAY, TAB 09/24/17 TESTOSTERONE 1.62% Topical Gel (ANDROGEL 1.62% Topical Gel) 1.25 Gm Gel.packet, 2 JEANNE TOP DAILY 07/01/17 Past Medical/Surgical History The patient has a past medical and surgical history of migraines, small aortic aneurysm, an STEMI 3, angina, multiple episodes of angina within the last week , coronary artery ectasia, wears reading glasses, cardiac catheterization May 2017. Reviewed Nurses Notes: Yes Smoking Status: Never Smoker Hx Substance Use Disorder: No Hx Alcohol Use: No Constitutional Vital Sign - Last 24 Hours 11/28/17 11/28/17 11/28/17 11/28/17 14:51 14:53 14:59 15:03 Temp 98.0 Pulse 87 Resp 16 B/P (MAP) 155/95 (115) 155/95 139/96 (110) Pulse Ox 96 O2 Delivery Room Air O2 Flow Rate 2.0 11/28/17 11/28/17 11/28/17 11/28/17 15:15 15:20 15:40 15:45 Pulse 79 77 Resp 9 18 B/P (MAP) 136/88 (104) 130/83 (99) Pulse Ox 95 95 11/28/17 11/28/17 11/28/17 11/28/17 15:50 16:00 16:05 16:20 Pulse 77 ??? 72 Resp 17 12 B/P (MAP) ???/??? (1665) 111/76 (88) Pulse Ox 95 96 11/28/17 11/28/17 11/28/17 11/28/17 16:35 16:40 16:50 17:00 Pulse 70 71 Resp 20 6 B/P (MAP) 105/75 (85) 102/62 (75) Pulse Ox 94 95 11/28/17 11/28/17 11/28/173/18 17:05 17:20 17:35 17:40 Pulse 73 71 69 Resp 22 13 17 B/P (MAP) 106/66 (79) 101/68 (79) Pulse Ox 94 95 96 11/28/17 11/28/17 11/28/17 11/28/17 17:45 18:00 18:15 18:20 Pulse 69 71 72 Resp 17 20 12 B/P (MAP) 102/58 (73) 107/66 (80) Pulse Ox 96 96 96 11/28/17 11/28/17 11/28/17 11/28/17 18:30 18:40 18:45 19:00 Pulse 75 76 66 Resp 27 26 10 B/P (MAP) 100/73 (82) 105/71 (82) Pulse Ox 96 96 96 Physical Exam General Appearance: The patient is alert, has no immediate need for airway protection and no signs of toxicity, appears anxious. Eyes: Pupils equal and round no pallor or injection. ENT, Mouth: Mucous membranes are moist. Respiratory: There are no retractions, lungs are clear to auscultation. Cardiovascular: Regular rate and rhythm, no murmurs, clicks or rubs. Gastrointestinal: Abdomen is soft and non tender, no masses, bowel sounds normal. Neurological: Alert and oriented 4. Moving all from these. Following all commands. No focal neuro deficits. Cranial nerves II through XII intact. Skin: Warm and dry, no rashes. Musculoskeletal: Neck is supple non tender. Extremities are nontender, nonswollen and have full range of motion. DIFFERENTIAL DIAGNOSIS: After history and physical exam differential diagnosis was considered for chest pain including but not limited to myocardial ischemia, pericarditis pulmonary embolus, chest wall pain, pleural inflammation and pulmonary infectious causes. Medical Decision Making Data Points Result Diagram: 11/28/17 1455 11/28/17 1455 Laboratory Hematology Test 11/28/17 14:55 11/28/17 18:35 Red Blood Count 6.27 M/uL (4.00-5.60) Mean Corpuscular Volume 87.4 fL (80.0-96.0) Mean Corpuscular Hemoglobin 31.2 pg (26.0-33.0) Mean Corpuscular Hemoglobin Concent 35.7 g/dL (32.0-36.0) Red Cell Distribution Width 15.7 % (11.5-14.5) Mean Platelet Volume 8.2 fL (7.2-11.1) Neutrophils (%) (Auto) 59.3 % (39.4-72.5) Lymphocytes (%) (Auto) 28.3 % (17.6-49.6) Monocytes (%) (Auto) 8.8 % (4.1-12.4) Eosinophils (%) (Auto) 2.8 % (0.4-6.7) Basophils (%) (Auto) 0.8 % (0.3-1.4) Nucleated RBC Relative Count (auto) 0.1 /100WBC Neutrophils # (Auto) 6.5 K/uL (2.0-7.4) Lymphocytes # (Auto) 3.1 K/uL (1.3-3.6) Monocytes # (Auto) 1.0 K/uL (0.3-1.0) Eosinophils # (Auto) 0.3 K/uL (0.0-0.5) Basophils # (Auto) 0.1 K/uL (0.0-0.1) Nucleated RBC Absolute Count (auto) 0.01 K/uL Sodium Level 137 mmol/L (137-145) Potassium Level 3.9 mmol/L (3.5-5.0) Chloride Level 101 mmol/L (98-107) Carbon Dioxide Level 23 mmol/L (22-30) Blood Urea Nitrogen 26 mg/dl (9-21) Creatinine 1.20 mg/dl (0.66-1.25) Glomerular Filtration Rate Calc > 60.0 Random Glucose 88 mg/dl (75-110) Calcium Level 8.8 mg/dl (8.4-10.2) Total Bilirubin 0.8 mg/dl (0.2-1.3) Aspartate Amino Transf (AST/SGOT) 33 U/L (0-35) Alanine Aminotransferase (ALT/SGPT) 31 U/L (0-56) Alkaline Phosphatase 72 U/L (0-126) Total Protein 7.6 g/dl (6.3-8.2) Albumin 4.7 g/dl (3.5-5.0) Troponin I < 0.012 ng/ml Chemistry Test 11/28/17 14:55 11/28/17 18:35 White Blood Count 11.0 k/uL (4.5-11.0) Red Blood Count 6.27 M/uL (4.00-5.60) Hemoglobin 19.6 g/dL (14.0-18.0) Hematocrit 54.8 % (42.0-52.0) Mean Corpuscular Volume 87.4 fL (80.0-96.0) Mean Corpuscular Hemoglobin 31.2 pg (26.0-33.0) Mean Corpuscular Hemoglobin Concent 35.7 g/dL (32.0-36.0) Red Cell Distribution Width 15.7 % (11.5-14.5) Platelet Count 280 K/uL (150-450) Mean Platelet Volume 8.2 fL (7.2-11.1) Neutrophils (%) (Auto) 59.3 % (39.4-72.5) Lymphocytes (%) (Auto) 28.3 % (17.6-49.6) Monocytes (%) (Auto) 8.8 % (4.1-12.4) Eosinophils (%) (Auto) 2.8 % (0.4-6.7) Basophils (%) (Auto) 0.8 % (0.3-1.4) Nucleated RBC Relative Count (auto) 0.1 /100WBC Neutrophils # (Auto) 6.5 K/uL (2.0-7.4) Lymphocytes # (Auto) 3.1 K/uL (1.3-3.6) Monocytes # (Auto) 1.0 K/uL (0.3-1.0) Eosinophils # (Auto) 0.3 K/uL (0.0-0.5) Basophils # (Auto) 0.1 K/uL (0.0-0.1) Nucleated RBC Absolute Count (auto) 0.01 K/uL Glomerular Filtration Rate Calc > 60.0 Calcium Level 8.8 mg/dl (8.4-10.2) Total Bilirubin 0.8 mg/dl (0.2-1.3) Aspartate Amino Transf (AST/SGOT) 33 U/L (0-35) Alanine Aminotransferase (ALT/SGPT) 31 U/L (0-56) Alkaline Phosphatase 72 U/L (0-126) Total Protein 7.6 g/dl (6.3-8.2) Albumin 4.7 g/dl (3.5-5.0) Troponin I < 0.012 ng/ml EKG/Imaging EKG Interpretation 12 lead EKG: Time of EKG 1455 Rhythm: Normal sinus rhythm, ventricular rate 88 bpm. Surprise: Left QRS: normal ST segments: No ST depression or elevation identified. Inverted T waves in lead 3. This is also noted on the 07/28/2017 EKG. No significant changes from the 07/28/2017 EKG. 12 lead EKG: Time of EKG 1831. Rhythm: Normal sinus rhythm, ventricular rate 73 bpm. Surprise: Left QRS: normal ST segments: No ST depression or elevation identified. Inverted T waves in lead 3. No changes from previous EKGs. Imaging Location: [facility] [place] Patient: Bimal Mccray : 1970 Visit/Account:[id number] Date of Sevice: 11/28/2017 2 VIEWS CHEST INDICATION: Chest pain, sleep apnea COMPARISON: X-ray examination of the chest from July 01, 2017 FINDINGS: Heart appears upper limits of normal. There is no evidence of focal infiltrate, consolidation, effusion or pneumothorax. Mild multilevel spondylotic changes are noted without acute osseous finding. IMPRESSION: 1. No acute cardiopulmonary process. Report Dictated By: Sam Mina MD at 11/28/2017 4:15 PM Report E-Signed By: Sam Mina MD at 11/28/2017 4:17 PM WSN:[id number] ED Course/Re-evaluation Clinical Indication for ER IV: Hydration, IV Access ED Course The patient was admitted to room. A history physical obtained. Differential diagnoses were considered. IV was started. A CBC, CMP, troponin were obtained.CBC showing hemoglobin 19.6, hematocrit 54.8, negative troponin.Patient was given a 1 L normal saline bolus, a 1 mg baby aspirin 4, 4 mg IV Zofran, Nitropaste, 4 mg IV morphine. Shortly after the medications were given patient was experiencing no chest pain or shortness of breath. The initial EKG showing normal sinus rhythm, no ST depression or elevation identified no changes from his previous EKGs. Repeat EKG done 4 hours later basically unchanged, no ST depression or elevation identified, normal sinus rhythm. The repeat troponin was negative. I did review these results with the patient, I did tell him that I like to talk to cardiology and [place] regarding his case, the patient was agreeable with this. I did speak with Dr. Pittman the business analytics specialist on-call at [facility], as noted below. I also spoke with Dr. Peña as noted below. I did talk to the patient about transferring to [facility] for observation, the patient states he would rather go home, I did express my concern, however the patient still wanted go home, I did to the patient that if he develops recurrent chest pain that he needs to return to the emergency department immediately and there is a very strong likelihood that we would transfer him to [place], the patient's understands this and is agreeable. at the time of discharge the patient was pain-free, no shortness of breath no nausea or vomiting no diaphoresis. I also told patient that he needs to follow up with cardiology as soon as possible calling 1st thing Friday morning and following up with one of the [place] cardiology partners. Patient states he will do this. 11/28/2017 4:13:53 pm I did inform the patient that his 1st troponin was negative. Patient was relieved. 11/28/2017 8:44:[address] Pittman 2 times regarding the patient's case , with his symptoms this week and his cardiac history his recommendation was admitted to our hospital for repeat troponin and EKG in the morning, he did not feel and immediate transfer was needed at this time, however he would be willing to admit the patient to [facility] if unable to admit at [facility]. I did speak with Dr. Peña, hospitalist on-call, he felt that the patient was ruled out in the emergency department and at this point there is no interventional cardiology available, felt that the patient would be better served elsewhere. I did discuss this with patient, I did recommend transfer to [place] for observation, the patient states he will decline the transport at this time and go home. The patient does understand my recommendation is to go to [place], however he is still wanting to go home. He does understand that he needs to return immediately for recurrent chest pain and we would likely transfer him to [facility], he is agreeable with this. Decision to Disposition Date: Nov 28, 2017 Decision to Disposition Time: 20:40 Depart Departure Latest Vital Signs Vital Signs Date Time Temp Pulse Resp B/P (MAP) Pulse Ox O2 Delivery O2 Flow Rate FiO2 11/28/17 19:00 66 10 105/71 (82) 96 11/28/17 15:03 2.0 11/28/17 14:53 98.0 Room Air Impression: Primary Impression: Chest pain Condition: Improved Disposition: HOME OR SELF-CARE Referrals: JACKIE JAY MD (PCP) TALI PITTMAN MD 5 Days Patient Instructions: Angina (ED), Chest Pain (ED) Additional Instructions: Please return immediately to the emergency department if she developed any recurrent chest pain, the likelihood that he will transfer to [place] at this point is very high. Drink plenty of water. Get plenty of rest. Continue taking her current medications. Call Dr. Pittman's office or Dr. Freeman's office thing Friday morning to schedule a follow-up appointment as soon as possible. If you need to call 911 please do. Return to the ER for any other concerns or worsening symptoms. Problem Qualifiers Primary Impression: Chest pain Chest pain type: unspecified Qualified Codes: R07.9 - Chest pain, unspecified DIANA SILVA SMOKE INSPECTOR-BC Nov 28, 2017 16:18
--- NOTE | 2017-11-28 16:20 | RADIOLOGY IMAGING REPORT ---
FACILITY: [facility] - [place] PATIENT NAME: Bimal Mccray : 1970 MR: [id number] V: [id number] EXAM DATE: ORDERING PHYSICIAN: DIANA SILVA TECHNOLOGIST: Location: [facility] Patient: Bimal Mccray : 1970 Visit/Account:[id number] Date of Sevice: 11/28/2017 2 VIEWS CHEST INDICATION: Chest pain, sleep apnea COMPARISON: X-ray examination of the chest from July 01, 2017 FINDINGS: Heart appears upper limits of normal. There is no evidence of focal infiltrate, consolidation, effusi on or pneumothorax. Mild multilevel spondylotic changes are noted without acute osseous finding. IMPRESSION: 1. No acute cardiopulmonary process. Report Dictated By: Sam Mina MD at 11/28/2017 4:15 PM Report E-Signed By: Sam Mina MD at 11/28/2017 4:17 PM WSN:[id number]
--- NOTE | 2017-11-28 18:36 | EKG ---
[place] [facility] [place] NAME: PIPPA CAMPO : [id number] MR: [id number] V: [id number] EXAM DATE: ORDERING PHYSICIAN: DIANA SILVA TECHNOLOGIST: NADIR Sampson Reason : REPEAT Blood Pressure : / mmHG Vent. Rate : 073 BPM Atrial Rate : 073 BPM P-R Int : 168 ms QRS Dur : 104 ms QT Int : 408 ms P-R-T Axes : 032 -38 -18 degrees QTc Int : 449 ms Normal sinus rhythm Left axis deviation Inferior infarct (cited on or before 21-JUN-2017) Abnormal ECG When compared with ECG of 28-NOV-2017 14:55, No significant change was found Confirmed by JAMEEL MONSIVAIS ([id number]) on 11/28/2017 8:12:55 PM Referred By: ODALYS Confirmed By:JAMEEL MONSIVAIS
[2017-11-28 20:49] VITALS: BP 104/67
== END 2017-11-28 20:53 | disposition home or self-care (01) ==
LOC: ER 15:06
DX: R07.9 Chest pain, unspecified (principal); G47.30 Sleep apnea, unspecified; I25.2 Old myocardial infarction; Z79.01 Long term (current) use of anticoagulants
CPT/HCPCS: 36415; 71046; 84484; 85025; 93005; 96361; 96374; 96375; 99284; J2270; J2405; J7030; 82040; 82247; 82310; 82374; 82435; 82565; 82947; 84075; 84132; 84155; 84295; 84450; 84460; 84520

== ENCOUNTER 2017-12-01 07:27 | Emergency (ER) | payer OTHER ==
[~2017-12-01 07:27] MED LIST changes: -ENOX120D5 SQ; -ISOS20TA PO; -LISI5TAB25 PO; -RANO500T PO
--- NOTE | 2017-12-01 07:34 | ER Report ---
History and Physical Time Seen By MD: 07:33 HPI/ROS CHIEF COMPLAINT: Chest pain and high blood pressure HISTORY OF PRESENT ILLNESS: Patient is a 47-year-old male with past medical history significant for acute coronary syndrome with both ST segment and non-ST segment elevation MIs. Also history of small aortic aneurysm. Patient presents today for evaluation of chest pain along with hypertension. The patient was seen on 11/28/2017 for a chest pain evaluation and at that time had serial troponins and EKGs performed which were both negative. The case was discussed with both the hospitalist at the time as well as the property management accountant from [facility]. There was some discussion about possible transport to [facility] for further cardiac observation however the patient refused transport and wanted to go home at that time. Patient states that he was driving from [place] to [place] during the drive he developed symptoms similar to his anginal equivalent. The symptoms include mild angina but shortness of breath nausea. He pulled over to the side of the road and took one sublingual nitroglycerin. This seemed to make his symptoms improve. He then drove to [facility] [place]. He currently states that his chest discomfort is a 1-2 out of 10 in intensity. Nausea is a 4- 5. He is not feeling short of breath at this time. He has no diaphoresis nor did he get sweaty during the initial onset of symptoms. Does state this is similar to the discomfort he experienced with his prior heart attacks. His last OH was in May 2017. He states that he had a catheterization done at that time in [place]. 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 REVIEW OF SYSTEMS: Constitutional: No fever, no chills. Eyes: No discharge. ENT: No sore throat. Cardiovascular: Left-sided chest pressure, no palpitations Respiratory: Mild dyspnea without cough Gastrointestinal: No abdominal pain or vomiting but reports nausea Genitourinary: No hematuria. Musculoskeletal: No back pain. Skin: No rashes. Neurological: No headache. Allergies: Coded Allergies: No Known Drug Allergies (Unverified , 12/01/17) Home Meds Active Scripts Nitroglycerin (NITROGLYCERIN) 0.4 Mg Tab.subl, 0.4 MG SL Q5MIN, #60 TAB 11 Refills 1 tab Q5 mins for three doses. If chest pain does not go away, go to Emergency Room. Prov:JACKIE JAY MD 10/27/17 Pantoprazole Sodium (PANTOPRAZOLE SODIUM) 40 Mg Tablet.dr, 40 MG PO QDAY, #30 TAB.SR Take half an hour before breakfast Prov:JACKIE JAY MD 09/24/17 Ticagrelor (BRILINTA) 90 Mg Tablet, 90 MG PO BID, #60 TAB 11 Refills Prov:JACKIE JAY MD 09/18/17 Isosorbide Mononitrate (ISOSORBIDE MONONITRATE ER) 60 Mg Tab.er.24h, 1 TAB PO DAILY, #30 TAB 10 Refills Prov:JACKIE JAY MD 09/18/17 Metoprolol Succinate (TOPROL XL) 25 Mg Tab.er.24h, 1 TAB PO QDAY, #90 TAB 3 Refills Prov:JACKIE JAY MD 08/08/17 Warfarin Sodium (WARFARIN SODIUM) 5 Mg Tablet, 5 MG PO QDAY, #102 TAB 1 Refill Prov:JACKIE JAY MD 07/28/17 Reported Medications Amlodipine Besylate (AMLODIPINE BESYLATE) 5 Mg Tablet, 1 TAB PO QDAY, TAB 09/24/17 TESTOSTERONE 1.62% Topical Gel (ANDROGEL 1.62% Topical Gel) 1.25 Gm Gel.packet, 2 JEANNE TOP DAILY 07/01/17 Past Medical/Surgical History Past medical history for acute coronary syndrome, history of both ST elevation and non-ST elevated OH, history of obstructive sleep apnea on CPAP, history of hypogonadism on continuous oral anticoagulation, history of obesity, history of aortic root aneurysm Smoking Status: Never Smoker Hx Substance Use Disorder: No Hx Alcohol Use: No Constitutional Vital Sign - Last 24 Hours 12/01/17 12/01/17 12/01/17 12/01/17 07:32 07:35 07:45 08:00 Temp 98.2 Pulse 79 79 81 Resp 18 23 25 B/P (MAP) 134/83 (100) 134/83 114/77 (89) 118/76 (90) Pulse Ox 95 95 91 12/01/17 12/01/17 12/01/17 12/01/17 08:15 08:30 08:45 09:00 Pulse 79 74 71 77 Resp 20 15 12 25 B/P (MAP) 116/75 (89) 110/72 (85) 107/74 (85) 110/71 (84) Pulse Ox 91 91 93 90 12/01/17 09:15 Pulse 75 Resp 19 B/P (MAP) 103/74 (84) Pulse Ox 91 Physical Exam General/Constitutional: Patient is awake, alert, nontoxic and in no acute respiratory distress. Head: Normocephalic and atraumatic. Eyes: Conjunctival clear, Sclera are clear and anicteric. Ears:External canals are clear. Tympanic membranes are clear with normal landmarks and light reflex. Nares: No rhinorrhea or bleeding. Turbinates are pink and moist. Oropharyngeal: Mucous membranes are moist. There is no pharyngeal erythema or exudate. There are no palatal petechiae. Uvula is midline and symmetrical. Neck: Supple, no adenopathy. Cardiovascular: Heart is regular rate and rhythm without audible murmurs, rubs or gallops. Pulmonary: Lungs are clear to auscultation bilaterally. There are no wheezes, rales, or rhonchi. Chest rise is symmetrical Abdomen: Soft, nontender, no guarding or peritoneal signs. Extremities: No gross deformities, No peripheral cyanosis. Able to move all 4 extremities. Neuro: Alert and oriented X3, Skin: No rashes, skin is warm dry and well perfused. Medical Decision Making Data Points Result Diagram: 12/01/17 0746 12/01/17 0746 Laboratory Hematology Test 12/01/17 07:46 12/01/17 12:03 Red Blood Count 6.26 M/uL (4.00-5.60) Mean Corpuscular Volume 88.3 fL (80.0-96.0) Mean Corpuscular Hemoglobin 31.3 pg (26.0-33.0) Mean Corpuscular Hemoglobin Concent 35.5 g/dL (32.0-36.0) Red Cell Distribution Width 15.4 % (11.5-14.5) Mean Platelet Volume 7.9 fL (7.2-11.1) Neutrophils (%) (Auto) 56.3 % (39.4-72.5) Lymphocytes (%) (Auto) 29.9 % (17.6-49.6) Monocytes (%) (Auto) 9.7 % (4.1-12.4) Eosinophils (%) (Auto) 3.3 % (0.4-6.7) Basophils (%) (Auto) 0.8 % (0.3-1.4) Nucleated RBC Relative Count (auto) 0.2 /100WBC Neutrophils # (Auto) 3.8 K/uL (2.0-7.4) Lymphocytes # (Auto) 2.0 K/uL (1.3-3.6) Monocytes # (Auto) 0.7 K/uL (0.3-1.0) Eosinophils # (Auto) 0.2 K/uL (0.0-0.5) Basophils # (Auto) 0.1 K/uL (0.0-0.1) Nucleated RBC Absolute Count (auto) 0.01 K/uL Prothrombin Time 20.0 seconds (12.0-14.4) Prothromb Time International Ratio 1.68 Activated Partial Thromboplast Time 37 seconds (23-35) Sodium Level 139 mmol/L (137-145) Potassium Level 4.0 mmol/L (3.5-5.0) Chloride Level 103 mmol/L (98-107) Carbon Dioxide Level 26 mmol/L (22-30) Blood Urea Nitrogen 16 mg/dl (9-21) Creatinine 1.00 mg/dl (0.66-1.25) Glomerular Filtration Rate Calc > 60.0 Random Glucose 90 mg/dl (75-110) Calcium Level 8.9 mg/dl (8.4-10.2) Total Bilirubin 0.6 mg/dl (0.2-1.3) Aspartate Amino Transf (AST/SGOT) 27 U/L (0-35) Alanine Aminotransferase (ALT/SGPT) 30 U/L (0-56) Alkaline Phosphatase 80 U/L (0-126) B-Type Natriuretic Peptide 7 pg/ml (0-100) Total Protein 7.8 g/dl (6.3-8.2) Albumin 4.8 g/dl (3.5-5.0) Troponin I < 0.012 ng/ml Chemistry Test 12/01/17 07:46 12/01/17 12:03 White Blood Count 6.8 k/uL (4.5-11.0) Red Blood Count 6.26 M/uL (4.00-5.60) Hemoglobin 19.6 g/dL (14.0-18.0) Hematocrit 55.2 % (42.0-52.0) Mean Corpuscular Volume 88.3 fL (80.0-96.0) Mean Corpuscular Hemoglobin 31.3 pg (26.0-33.0) Mean Corpuscular Hemoglobin Concent 35.5 g/dL (32.0-36.0) Red Cell Distribution Width 15.4 % (11.5-14.5) Platelet Count 258 K/uL (150-450) Mean Platelet Volume 7.9 fL (7.2-11.1) Neutrophils (%) (Auto) 56.3 % (39.4-72.5) Lymphocytes (%) (Auto) 29.9 % (17.6-49.6) Monocytes (%) (Auto) 9.7 % (4.1-12.4) Eosinophils (%) (Auto) 3.3 % (0.4-6.7) Basophils (%) (Auto) 0.8 % (0.3-1.4) Nucleated RBC Relative Count (auto) 0.2 /100WBC Neutrophils # (Auto) 3.8 K/uL (2.0-7.4) Lymphocytes # (Auto) 2.0 K/uL (1.3-3.6) Monocytes # (Auto) 0.7 K/uL (0.3-1.0) Eosinophils # (Auto) 0.2 K/uL (0.0-0.5) Basophils # (Auto) 0.1 K/uL (0.0-0.1) Nucleated RBC Absolute Count (auto) 0.01 K/uL Prothrombin Time 20.0 seconds (12.0-14.4) Prothromb Time International Ratio 1.68 Activated Partial Thromboplast Time 37 seconds (23-35) Glomerular Filtration Rate Calc > 60.0 Calcium Level 8.9 mg/dl (8.4-10.2) Total Bilirubin 0.6 mg/dl (0.2-1.3) Aspartate Amino Transf (AST/SGOT) 27 U/L (0-35) Alanine Aminotransferase (ALT/SGPT) 30 U/L (0-56) Alkaline Phosphatase 80 U/L (0-126) B-Type Natriuretic Peptide 7 pg/ml (0-100) Total Protein 7.8 g/dl (6.3-8.2) Albumin 4.8 g/dl (3.5-5.0) Troponin I < 0.012 ng/ml Coagulation Test 12/01/17 07:46 Prothrombin Time 20.0 seconds Prothromb Time International Ratio 1.68 Activated Partial Thromboplast Time 37 seconds EKG/Imaging EKG Interpretation The patient had 2 EKGs for chest pain evaluation on 11/28/2017. EKG from 2:55 PM on 11/28/2017 shows an incomplete right bundle-branch block, left axis deviation Q waves in the inferior leads sided before in 06/21/2017. 2nd EKG performed at 6:31 PM on the same date showed no significant changes. 12/01/2017 7:39:08 am EKG today shows normal sinus rhythm with a borderline left axis. Evidence of an old inferior wall OH. Borderline incomplete right bundle branch block. This EKG is essentially unchanged from the EKGs obtained on 11/28/2017. Monitor Interpretation: Normal Sinus Rhythm Imaging 12/01/2017 8:00:38 am x-ray reveals no acute cardiopulmonary disease according to the official report by radiology. ED Course/Re-evaluation Clinical Indication for ER IV: IV Access ED Course 12/01/2017 8:14:38 am plan will be a cardiac workup with delta troponin at 4 hour window along with a repeat EKG. Initial EKG is unremarkable and unchanged from November 28. Patient is subtherapeutic with his INR at 1.68. His schedule is 7.5 mg of Coumadin every day with the exception of Friday which is 5 mg. We will give additional 5 mg today. Plan will be to discuss the case with [facility] [place] after workup is complete. 12/01/2017 10:00:08 am patient symptom-free at this time he did receive 4 of IV Zofran, 50 g of fentanyl and 5 mg of Coumadin. Awaiting 4 hour troponin and EKG we'll also consult cardiology at [facility]. 12/01/2017 1:06:53 pm 2nd troponin repeat EKG are unchanged. I spoke with Dr. Turner from cardiology at [facility] history physical exam and case were discussed. Dr. Turner recommended a repeat troponin in the 3 hour window and feels that the patient needs a sooner rather than later cardiac evaluation. He did decide that the patient could make the ultimate decision whether he will go inpatient for close follow-up as an outpatient. I said I would discuss this with the patient. As I was relaying this information the patient had a recurrence of his anginal equivalent type pain. We are going to repeat an EKG I will be calling [facility] at this point I feel that the best course of action is to transport this patient for further cardiac evaluation. Patient is in agreement 12/01/2017 1:26:34 pm case discussed with from [facility]. History physical exam all pertinent lab data and ED course were discussed. Patient has been accepted for transport at this time for admission to [facility] Decision to Disposition Date: Dec 01, 2017 Decision to Disposition Time: 13:27 Depart Departure Latest Vital Signs Vital Signs Date Time Temp Pulse Resp B/P (MAP) Pulse Ox O2 Delivery O2 Flow Rate FiO2 12/01/17 09:15 75 19 103/74 (84) 91 12/01/17 07:35 98.2 Impression: Primary Impression: Acute coronary syndrome Condition: Improved Disposition: XFER TO [facility] (to Dr Harrington [facility]) Referrals: JACKIE JAY MD (PCP) LEXI COCHRAN MD Dec 01, 2017 07:33
[2017-12-01] MEDS: ASPIRIN 81 MG CHEW PO ONE ×2 (07:35→07:50)
[2017-12-01] MEDS ORDERED: NITROGLYCERIN 0.4 MG SUBL SL SCH (07:35)
--- NOTE | 2017-12-01 07:40 | EKG ---
FACILITY: [facility] PATIENT NAME: PIPPA CAMPO : [id number] MR: [id number] V: [id number] EXAM DATE: ORDERING PHYSICIAN: LEXI COCHRAN TECHNOLOGIST: EDMUND Sampson Reason : CARDIAC Blood Pressure : / mmHG Vent. Rate : 075 BPM Atrial Rate : 075 BPM P-R Int : 168 ms QRS Dur : 102 ms QT Int : 388 ms P-R-T Axes : 038 -29 -17 degrees QTc Int : 433 ms Normal sinus rhythm Inferior infarct (cited on or before 21-JUN-2017) Abnormal ECG When compared with ECG of 28-NOV-2017 18:31, No significant change was found Confirmed by LUIS HOLT ([id number]) on 12/01/2017 9:55:34 AM Referred By: Confirmed By:LUIS HOLT
[2017-12-01] MEDS ORDERED: ASPIRIN 81 MG CHEW ONE (07:53)
[2017-12-01 07:59] LABS: PLATELET COUNT, AUTOMATED 258 K/uL (150-450)
--- NOTE | 2017-12-01 08:00 | RADIOLOGY IMAGING REPORT ---
FACILITY: [facility] [place] PATIENT NAME: Bimal Mccray : 1970 MR: [id number] V: [id number] EXAM DATE: ORDERING PHYSICIAN: LEXI COCHRAN TECHNOLOGIST: Location: [facility] [place] Patient: Bimal Mccray : 1970 Visit/Account:[id number] Date of Sevice: 12/01/2017 Exam type: CHEST SINGLE AP History: Chest Pain Comparison: 11/28/2017. Findings: Both lungs are well-expanded and clear. There is no focal consolidation, pleural effusion or pneumoth orax. Heart size is normal. The osseous structures are unremarkable. IMPRESSION: 1. No acute cardiopulmonary disease. Report Dictated By: Lopez East MD at 12/01/2017 7:55 AM Report E-Signed By: Lopez East MD at 12/01/2017 7:56 AM WSN:[id number]
[2017-12-01 08:04] LABS: INR 1.68
[2017-12-01] MEDS ORDERED: fentaNYL CITR 100 MCG/2 ML AMP IVP ONE (08:15)
[2017-12-01] MEDS ORDERED: WARFARIN SOD 5 MG TAB PO ONE (08:15)
[2017-12-01] MEDS ORDERED: ONDANSETRON 4 MG/2 ML VIAL IVP ONE ×2 (08:15→13:10)
--- NOTE | 2017-12-01 12:19 | EKG ---
FACILITY: [facility] PATIENT NAME: PIPPA CAMPO : [id number] MR: [id number] V: [id number] EXAM DATE: ORDERING PHYSICIAN: LEXI COCHRAN TECHNOLOGIST: EDMUND Sampson Reason : CARDIAC Blood Pressure : / mmHG Vent. Rate : 069 BPM Atrial Rate : 069 BPM P-R Int : 168 ms QRS Dur : 104 ms QT Int : 402 ms P-R-T Axes : 031 -45 -12 degrees QTc Int : 430 ms Normal sinus rhythm Pulmonary disease pattern Left anterior fascicular block Possible Inferior infarct , age undetermined Abnormal ECG No previous ECGs available Confirmed by LUIS HOLT ([id number]) on 12/01/2017 4:12:20 PM Referred By: DIMAS Confirmed By:LUIS HOLT
--- NOTE | 2017-12-01 13:36 | EKG ---
[place] [facility] [place]IENT NAME: PIPPA CAMPO : [id number] MR: [id number] V: [id number] EXAM DATE: ORDERING PHYSICIAN: LEXI COCHRAN TECHNOLOGIST: EDMUND Sampson Reason : CARDIAC Blood Pressure : / mmHG Vent. Rate : 068 BPM Atrial Rate : 068 BPM P-R Int : 166 ms QRS Dur : 102 ms QT Int : 406 ms P-R-T Axes : 033 -44 -09 degrees QTc Int : 431 ms Normal sinus rhythm Left axis deviation Cannot rule out Inferior infarct , age undetermined Abnormal ECG No previous ECGs available Confirmed by LUIS HOLT ([id number]) on 12/01/2017 4:12:31 PM Referred By: DIMAS Confirmed By:LUIS HOLT
[2017-12-01 14:00] VITALS: BP 118/84
== END 2017-12-01 14:10 | disposition short-term general hospital (02) ==
LOC: ER 07:39
DX: I24.9 Acute ischemic heart disease, unspecified (principal); I10 Essential (primary) hypertension; I44.4 Left anterior fascicular block; R06.00 Dyspnea, unspecified
CPT/HCPCS: 71045; 83880; 84484; 85025; 85610; 85730; 93005; 96374; 96375; 96376; 99285; J2405; J3010; 82040; 82247; 82310; 82374; 82435; 82565; 82947; 84075; 84132; 84155; 84295; 84450; 84460; 84520

== ENCOUNTER → 2017-12-01 | Outpatient (CLI) | payer OTHER ==
[~2017-12-01] MED LIST changes: +ENOX120D5 SQ; +ISOS20TA PO; +LISI5TAB25 PO; +RANO500T PO
== END ==
LOC: AMB 14:09
PROVIDERS: ATTEND Nurse Practitioner
DX: R07.9 Chest pain, unspecified (principal)
CPT/HCPCS: A0425; A0426

== ENCOUNTER 2018-07-20 11:00 | Outpatient (RCR) | payer OTHER ==
[2018-07-02 15:03] VITALS: BP 110/78
[2018-07-02 15:14] VITALS: BP 112/86
--- NOTE | 2018-07-02 17:32 | CARDIAC REHAB PLAN OF CARE ---
Physician: Herve CAMPBELL Patient is being seen: Andrea Warren Medical Diagnosis: NSTEMI, (coronary artery ectasia) Date of Initial Evaluation: July 02, 2018 Patient Assessment: Patient is a 47 year old male patient that is returning to cardiac rehab after a 2017 NSTEMI. Patient was sporadic in attendance and unable to finish the 36 visit program due to work conflicts. 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 Definition of condition: Coronary artery ectasia () is a relatively common entity causing inappropriate dilatation of the coronary vasculature. The exact mechanism of its development is unknown, but evidence suggests a combination of genetic predisposition, common risk factors for coronary artery disease (CAD) and abnormal vessel wall metabolism. It frequently co-exists with aneurysms elsewhere, mostly involving the aorta. In this review, we describe the flow disturbances that are associated with this condition and the imaging modalities, which can be used for diagnosis and prospective follow-up. The prognosis of coronary ectasias is not benign and prospective studies focusing on conservative or invasive strategies to prevent cardiac complications are lacking. Management of includes: Treatment To date there are no randomised studies specifically addressing the medical management of patients with . Based on the significant flow disturbances within the ectatic segments, chronic anticoagulation has been previously proposed as the main therapy.28,52 This treatment, however, has not been prospectively tested, and cannot be routinely recommended unless supported by future studies,27 although the use of anticoagulants in patients with and recurrent thromboses may be reasonable. Heparin infusion as well as fibrinolysis, have been successfully used for recanalisation of acute thrombotic occlusions in , occasionally revealing absence of flow-limiting stenoses. Patient is motivated to attend and complete the phase II program. Exercise Assessment: During her 6 Minute Walk Test, the patient walked a total of 1170 feet for an average of 2.22 mph. SPO2 levels of 92-94% on room air and HR at 87-91. The 47 year old patient struggled with the walk test with an increase in chest pain and patient slowed down at minute 4. The increase in RPE and chest pain did not relate to an increase in heart rate. Patient was then too exhausted to really sample other exercise options for cardiac rehab. He also was familiar with other machines from his first visit to our program. During cardiac rehab the patient will need great communication with the caregivers with the chronic chest pain issue. He controls the pain with PRN use of Nitro, however we will not be comfortable trying to determine the extent of the supple vs demand issue of the myocardium to safely exercise beyond that level. The patients exercise history includes strong man type of workouts which would fall into a WILLY type of exercise plan. The patient is 5' 10" and 210 pounds a stocky, strong person. His max healthy BMI weight is 174 pounds. His recent heart issues and condition have ended any workouts and he no longer works and currently is very inactive. Exercise Plan: Goals: Are to eventually work up to 30-45 minutes of a moderate level of cardio exercise, followed by weight resistance exercise. Exercise Prescription: Mode: Treadmill, upright bike, elliptical, and weight resistance. Frequency: 3 days/week (MWF) Duration: 30-40 minutes of aerobic exercise; 15-20 minutes of strength training. Intensity: During aerobic exercise the patients chronic chest pain, condition, and poor performance on the 6 minute walk test, his THR zone will be 55-65% of his age predicted max and the first few visits will be 50-55% of his age predicted max with a short duration and make a slow progression in adding duration and intensity based on the patients response to exercise. This patient is going to require less concern about the HR zone and greater concern of chest pain evaluation and monitoring. Education: Education will focus on good communication of chest pain with cardiac rehab staff to allow this information along with other objective assessment tools to gain the entire picture of how best to manage his exercise. Exercise Reassessment (Date: 08/02/2018): Exercise Discharge/Follow-Up (Date: ): Nutrition Assessment: The patient currently follows a healthy diet plan with vegetables and limited carbohydrates and states he has backed off of supplemental whey protein. He is comfortable at his current 210 pounds and is aware he is 46 pounds over his healthy max BMI weight. He also states he is mostly dairy free and gluten free. Nutrition Plan: Goals: Goals will be to focus on improving that diet to help with the atherosclerotic aspect of his vessel condition and also try to convince him to lose some of the weight as well. Intervention: First we will focus on getting away from supplemental protein and turning towards healthy lean meats, chicken, fish, and beans to provide protein since dairy sources are not in his plans. Education: Education will focus on food choices for nutrients and to get away from the strong man exercise and diet supplementation that goes with that. Nutrition Reassessment (Date:08/02/2018): Nutrition Discharge/Follow-Up (Date: ): Psychosocial Assessment: The patient has had to give up his job because of the health (heart) issue and is not as active for the same reason. At only 47 years old there is stress and anxiety that goes along with that. Patient HADS results showed normal risk for depression but high risk category for Anxiety. Psychosocial Plan: Goals: Our goal will be to add ourselves to her support system and help strengthen her current support system and healthy lifestyle choices. Intervention: Intervention will be focused on improving health and confidence in his heart health to be able to return to more activities which could include a job. Education: Education will focus on the importance of healthy lifestyle management to aid in obtaining those goals Psychosocial Reassessment (Date: 08/02/2018): Psychosocial Discharge/Follow-Up (Date: ): Physician Signature: Date: MTDD
[2018-07-06 16:42] VITALS: BP 120/70
[2018-07-06 16:44] VITALS: BP 102/72
[2018-07-13 13:30] VITALS: BP 118/80
[2018-07-13 13:31] VITALS: BP 106/76
[~2018-07-20 11:00] MED LIST changes: +AMLO-125 PO; -AMLO-96 PO; +CLOP75TA43 PO; +ENOX120D5 SQ; +ISOS20TA PO; +LISI5TAB25 PO; +RANO10002 PO; +RANO500T PO
[2018-07-20 18:25] VITALS: BP 110/80
[2018-07-20 18:26] VITALS: BP 110/80
== END 2018-07-20 18:00 | disposition home or self-care (01) ==
LOC: CARD 11:00
PROVIDERS: ATTEND Nurse Practitioner Family
DX: Z51.89 Encounter for other specified aftercare (principal); I25.2 Old myocardial infarction; I25.41 Coronary artery aneurysm
CPT/HCPCS: 93798

== ENCOUNTER → 2018-08-26 | Outpatient (CLI) | payer SELFPAY ==
[2018-08-26 09:27] LABS: PLATELET COUNT, AUTOMATED 262 K/uL (150-450)
[2018-08-26 10:11] LABS: LDL CHOLESTEROL 65 mg/dl
== END ==
LOC: LAB 09:08
PROVIDERS: ATTEND Emergency Medicine
DX: G47.33 Obstructive sleep apnea (adult) (pediatric) (principal); E66.9 Obesity, unspecified; I71.9 Aortic aneurysm of unspecified site, without rupture; I77.89 Other specified disorders of arteries and arterioles; E29.1 Testicular hypofunction
CPT/HCPCS: 36415; 82040; 82247; 82310; 82374; 82435; 82465; 82565; 82947; 83718; 84075; 84132; 84155; 84295; 84402; 84403; 84443; 84450; 84460; 84478; 84520; 85025

== ENCOUNTER → 2018-09-02 | Outpatient (CLI) | payer OTHER | LOC: RESP 07:37 | PROVIDERS: ATTEND Emergency Medicine | DX: J98.4 Other disorders of lung (principal) | CPT/HCPCS: 94060; 94726; 94729 ==